=== PATIENT | female | born 1970 | race Caucasian/White ===

== ENCOUNTER 2016-08-27 13:31 | Emergency (ER) | payer OTHER ==
[2016-08-27 14:01] LABS: Bilirubin Negative (Negative); Blood, Urine Moderate (Negative); Clarity Slightly Cloudy (Clear); Glucose, Urine (Dipstick) Negative (Negative); Leukocyte Negative (Negative); Nitrite Positive (Negative); Protein, Urine (Dipstick) Trace mg/dL (Neg-Trace); Urobilinogen 0.2 mg/dL (0.2-1.0)
[2016-08-27 14:07] LABS: Bacteria/HPF 4+ HPF (None Seen)
[2016-08-27 14:27] LABS: ALT (SGPT) 11 U/L (0-55); AST (SGOT) 17 U/L (5-34); Acetaminophen Less than 3.0 mcg/mL (10.0-30.0); Albumin 4.8 g/dL (3.5-5.0); Alcohol Less than 10 mg/dL (Less than 10); Alkaline Phosphatase 125 U/L (40-150); Anion Gap 17 mmol/L (10-20); BUN (Urea Nitrogen) 21 mg/dL (7.0-18.7); Bilirubin, Total 0.4 mg/dL (0.2-1.2); Calc. Creatinine Clearance 0 mL/min (70-130); Calcium 10.7 mg/dL (7.8-10.44); Carbon Dioxide 27 mmol/L (22-29); Chloride 101 mmol/L (98-107); Estimated GFR-MDRD 76; Globulin 3.5 g/dL (2.4-3.5); Glucose 87 mg/dL (70-105); Magnesium 2.4 mg/dL (1.6-2.6); Potassium 3.6 mmol/L (3.5-5.1); Protein, Total 8.3 g/dL (6.0-8.3); Salicylate Less than 5.0 mg/dL (15.0-30.0); Sodium 141 mmol/L (136-145)
[2016-08-27 14:30] LABS: Band 2 % (5-11); Hemoglobin 14.3 g/dL (12.0-16.0); Lymphocytes 15 % (21-51); MDiff Complete? YES; Mean Corpuscular HGB CONC 34.2 g/dL (32.0-36.0); Mean Corpuscular Volume 90.7 fl (81.0-99.0); Mean Platelet Volume 7.1 fL (7.4-10.4); Monocytes 4 % (0-10); Neutrophil 79 % (42-75); PLT Morphology Comment Appears Increased; Platelet Count 456 thou/uL (130-400); RBC Distribution Width 13.4 % (11.5-14.5); White Blood Cell (WBC) Count 22.1 thou/uL (4.8-10.8)
[2016-08-27 14:38] LABS: Amphetamine Detected (NotDetected); Barbiturates Screen Not Detected (NotDetected); Benzodiazepine Screen Not Detected (NotDetected); Cocaine Metabolite Screen Not Detected (NotDetected); Medtox Control Line Valid? VALID (VALID); Methadone Not Detected (NotDetected); Methamphetamine Detected (NotDetected); Opiate Screen Not Detected (NotDetected); Oxycodone Screen Not Detected (NotDetected); Phencyclidine (PCP) Not Detected (NotDetected); THC/Cannabinoid Screen Detected (NotDetected); Tricyclic Screen Not Detected (NotDetected)
--- NOTE | 2016-08-27 14:52 | RAD ---
PORTABLE CHEST 1 VIEW: DATE: 08/27/16. TIME: 2:33 p.m. HISTORY: Altered mental status. FINDINGS: The patient is rotated to the right. The heart size is normal. The aorta is tortuous. There is a right-sided Port-A-Cath with tip in th e projection of the SVC. The lungs are expanded without confluent areas of consolidation, pneumotho rax, or pleural effusions. IMPRESSION: No radiographic evidence of acute cardiopulmonary process. POS: [facility]
== END 2016-08-27 17:30 | disposition home or self-care (01) ==
LOC: MADERS 13:31
DX: F31.10 Bipolar disorder, current episode manic without psychotic features, unspecified (principal); F15.10 Other stimulant abuse, uncomplicated
CPT/HCPCS: 36415; 71010; 80053; 80306; 80307; 81003; 81015; 83735; 84443; 85025; 93005